=== PATIENT | female | born 1980 | race Two or more races ===

== ENCOUNTER 2017-03-03 05:22 | Day surgery (SDC) | payer OTHER ==
[2017-03-02 10:56] VITALS: BMI 26.6
--- NOTE | 2017-03-03 09:32 | HP ---
Satellite [facility] - Chief Complaint Chief Complaint: right middle finger pain/locking - Past Medical History Allergies/Adverse Reactions: Allergies Allergy/AdvReac Type Severity Reaction Status Date / Time No Known Drug Allergies Allergy Verified 03/02/17 10:46 ...LMP: 02/25/17 - Current Medications Current Medications: Home Medications Medication Instructions Recorded Bupropion HCl [Wellbutrin -] 200 mg PO DAILY 03/02/17 Citalopram Hydrobromide [Celexa -] 20 mg PO HS 03/02/17 Desogestrel-Ethinyl Estradiol 1 each PO DAILY 03/02/17 [Apri 28 Day Tablet] Dexlansoprazole [Dexilant] 60 mg PO DAILY 03/02/17 Hydrocodone/Acetaminophen [[place] 1 - 2 each PO Q6H #30 tablet MDD 8 03/03/17 5-325 Tablet] Satellite Physical Exam - Physical Examination Vital Signs: Vital Signs Period Temp Pulse Resp BP Sys/Saha Pulse Ox Last 24 Hr 98.0 F 72 18 129/90 100 General Appearance: Well Nourished, Well Developed, Alert & Oriented x3 ENT: Clear Lung: Normal air movement Heart: Regular rate & rhythm Extremities: Other (right middle finger- + ttp a1 last, + locking, nvi) Neurological: Intact, Alert, Oriented Satellite Impression/Plan - Impression/Plan Impression: right middle trigger finger Operative Procedure: right middle trigger release Date to be Performed: 03/03/17
[2017-03-03] MEDS ORDERED: BUPIVACAINE HCL/PF 0.5% (5MG/ML) 10 ML VIAL ONE (10:05)
[2017-03-03] MEDS ORDERED: LIDOCAINE HCL 1%, 10 MG/ML (20ML VIAL) ONE (10:05)
[2017-03-03] MEDS ORDERED: MIDAZOLAM HCL 2 MG/2 ML SINGLE DOSE VIAL ONE (10:20)
[2017-03-03] MEDS ORDERED: PROPOFOL 20 ML ONE ×2 (10:20)
[2017-03-03] MEDS ORDERED: ceFAZolin SODIUM 1 GM VIAL ONE (10:20)
[2017-03-03] MEDS ORDERED: ceFAZolin SODIUM 1 GM VIAL IVPB ONE (10:33)
[2017-03-03] MEDS ORDERED: LIDOCAINE HCL 1%, 10 MG/ML (20ML VIAL) IJ ONE (10:42)
[2017-03-03] MEDS ORDERED: BUPIVACAINE HCL/PF 0.5% (5MG/ML) 10 ML VIAL IJ ONE (10:42)
--- NOTE | 2017-03-03 10:58 | OP ---
Operative Note - Note: Operative Date: 03/03/17 Pre-Operative Diagnosis: right middle finger trigger finger Operation: right middle finger trigger release, tendon sheath excision Post-Operative Diagnosis: Same as Pre-op Surgeon: Jose Elias Pineda Anesthesiologist/ASSOCIATE DIRECTOR DATA & ANALYTICS: Violeta Miller Anesthesia: General, Local Specimens Removed: tendon sheath Estimated Blood Loss (mls): 0 Drains, Volume Out (mls): 0 Blood Volume Replaced (mls): 0 Fluid Volume Replaced (mls): 500 Operative Report Dictated: Yes
[2017-03-03] MEDS ORDERED: ONDANSETRON 4 MG/2 ML VIAL IVPUSH PRN (11:04)
[2017-03-03] MEDS ORDERED: oxyCODONE HCL 5 MG TABLET PO PRN (11:04)
[2017-03-03] MEDS ORDERED: ACETAMINOPHEN 325 MG TABLET (FP) PO PRN (11:04)
--- NOTE | 2017-03-03 11:28 | SPEC ---
DATE OF OPERATION: 03/03/2017 PREOPERATIVE DIAGNOSIS: Right middle finger trigger finger. POSTOPERATIVE DIAGNOSIS: Right middle finger trigger finger. PROCEDURE: Right middle finger trigger finger release and tendon sheath excision. SURGEON: Dhiraj Nunes MD CASTING TRUCKER: None. ANESTHESIA: MAC anesthesia with local injection 10 mL of 0.5% Marcaine and 1% Lidocaine mix. DRAINS: None. COMPLICATIONS: None. SPECIMENS: Right middle finger tendon sheath. BLOOD LOSS: None. BLOOD GIVEN: None. FLUID REPLACEMENT: 500 mL. INDICATIONS: This patient is a 36-year-old female with preoperative diagnosis of recurrent severe right middle finger trigger finger. After understanding the potential risks, complications, alternatives, and benefits of surgical versus nonsurgical treatment, the patient elected to undergo the procedure. PROCEDURE: The patient was brought to the operating room, IV was placed, and intravenous sedation was given. One gram of intravenous Ancef was given. A tourniquet was applied to the right upper arm and the right upper extremity was prepped and draped in sterile fashion. The entire case was done under 3.8 loupe magnification. A marking pen was utilized to netta out a longitudinal incision in an already existing skin crease at the base of the right middle finger. Then 10 mL of 0.5% Marcaine mixed with 1% Lidocaine was injected in and around the incision. The right upper extremity was elevated, exsanguinated with an Esmarch bandage and the tourniquet inflated to 250 mmHg. A No. 15 scalpel blade was utilized to cut down through the skin. Subcutaneous hemostasis was achieved with the bipolar cautery. Additional dissection was done with Littler scissors until I was able to directly visualize the A1 last sheath in its entirety. Self-retaining retractors were placed into the wound. A free air elevator was used to free up the tissue on the radial side, the ulnar side distally and proximally under better visualization of A1 last sheath. Next, using a fresh No. 15 scalpel blade, I excised the central one-third of the A1 last sheath and passed it off the field as specimen, tendon sheath, and right middle finger. I then completed the release, both distally and proximally, and brought the FDS and FDP tendons out through the wound with a Ragnell retractor. There were no abnormal points of compression. I was able to move the right middle finger without the tendons bunching up at all. The area was then copiously irrigated and washed out. I then checked one more time to make sure there were no abnormal points of compression. None were seen and therefore closure was begun. One stitch using 4-0 Vicryl was used in the deep dermal layer. Skin was reapproximated with 4-0 Nylon sutures in a horizontal mattress fashion. The area was then washed and dried, covered with Xeroform gauze, sterile 4 x 4s, fluffs between the fingers, Webril and Coban. The tourniquet was taken down after a total tourniquet time of 10 minutes. There were no complications during the case. The patient tolerated the procedure well and was brought to the Ambulatory recovery Room in stable condition. DHIRAJ NUNES M.D. [id number]
[2017-03-03 12:38] VITALS: TEMP 97.2
[2017-03-03 13:52] VITALS: BP 111/72; PULSE 66
--- NOTE | 2017-03-04 13:43 | PATH ---
Surgical Pathology Report Patient Name: TRACIE NGUYEN Med. Rec. #: [id number] /Age/Gender: 1980 (Age: 36) / F Account: [id number] Location: [facility] SURGICAL Taken: 03/03/2017 Received: 03/03/2017 Reported: 03/04/2017 Physicians: Jose Elias Pineda M.D. Specimen(s) Received TENDON SHEATH Clinical History Right middle finger trigger finger Final Diagnosis SOFT TISSUE, TENDON SHEATH, RIGHT TRIGGER FINGER RELEASE: BENIGN TENOSYNOVIAL FIBROFATTY TISSUE WITH FOCAL MYXOID DEGENERATION. Electronically Signed Eduardo Castro M.D. Gross Description Received in formalin labeled "tendon sheath" is a 0.5 x 0.4 x 0.1 cm aggregate of edouard soft tissue fragments. The specimen is entirely submitted in one cassette. /03/03/2017 saudi03/03/2017
== END 2017-03-03 13:15 | disposition home or self-care (01) ==
LOC: JASU-SURG 05:22
PROVIDERS: ATTEND Orthopaedic Surgery
PROC: 0LN70ZZ Release Right Hand Tendon, Open Approach (ICD-10-PCS; principal; 2017-03-03 10:00)
DX: M65.331 Trigger finger, right middle finger (principal)
CPT/HCPCS: 88304-TC; 94760

== ENCOUNTER 2018-10-26 05:17 | Day surgery (SDC) | payer OTHER ==
[2018-10-24 16:23] VITALS: BMI 27.6
[2018-10-26] MEDS ORDERED: LIDOCAINE HCL/PF 2% SDV 5ML VIAL ONE (07:56)
[2018-10-26] MEDS ORDERED: ceFAZolin SODIUM 1 GM VIAL ONE (07:56)
[2018-10-26] MEDS ORDERED: PROPOFOL 20 ML ONE (07:56)
[2018-10-26] MEDS ORDERED: MIDAZOLAM HCL 2 MG/2 ML SINGLE DOSE VIAL ONE (07:57)
--- NOTE | 2018-10-26 08:17 | HP ---
Satellite [facility] - Chief Complaint Chief Complaint: right hand pain, numbness, tingling, weakness History of Present Illness: right CTS, ring trigger finger History Source: Patient Limitations to Obtaining History: No Limitations - Past Medical History Allergies/Adverse Reactions: Allergies Allergy/AdvReac Type Severity Reaction Status Date / Time No Known Drug Allergies Allergy Verified 10/26/18 06:25 ...LMP: 09/30/18 - Current Medications Current Medications: Home Medications Medication Instructions Recorded Bupropion HCl [Wellbutrin -] 200 mg PO DAILY 03/02/17 Citalopram Hydrobromide [Celexa -] 20 mg PO HS 03/02/17 Dexlansoprazole [Dexilant] 60 mg PO DAILY 03/02/17 Acetaminophen [Tylenol -] 500 mg PO PRN 10/24/18 Montelukast Sodium [Singulair] 10 mg PO DAILY 10/24/18 Satellite Physical Exam - Physical Examination Vital Signs: Vital Signs Period Temp Pulse Resp BP Sys/Saha Pulse Ox Last 24 Hr 98.4 F 63 16 118/73 100 General Appearance: Well Nourished ENT: Clear Lung: Clear to auscultation Heart: Regular rate & rhythm Breasts: Soft Abdomen: Soft Extremities: No edema Satellite Impression/Plan - Impression/Plan Impression: right CTS, ring trigger finger Operative Procedure: right CTR, ring trigger finger release Date to be Performed: 10/26/18
[2018-10-26] MEDS ORDERED: ceFAZolin SODIUM 1 GM VIAL IVPB ONE (08:21)
[2018-10-26] MEDS ORDERED: LIDOCAINE HCL 1%, 10 MG/ML (20ML VIAL) NR ONE (08:35)
[2018-10-26] MEDS ORDERED: BUPIVACAINE HCL/PF 0.5% (5MG/ML) 10 ML VIAL IJ ONE (08:35)
[2018-10-26] MEDS ORDERED: KETOROLAC TROMETHAMINE 30 MG/1 ML VIAL ONE (08:36)
--- NOTE | 2018-10-26 09:10 | OP ---
Operative Note - Note: Operative Date: 10/26/18 Pre-Operative Diagnosis: right CTS, ring trigger finger Operation: right CTR, ring trigger release, tenosynovectomy Post-Operative Diagnosis: Same as Pre-op Surgeon: Jose Elias Pineda Anesthesiologist/VISUAL COMMUNICATIONS INSTRUCTOR: Violeta Miller Anesthesia: Local, MAC Specimens Removed: tenosynovium Estimated Blood Loss (mls): 0 Drains, Volume Out (mls): 0 Blood Volume Replaced (mls): 0 Fluid Volume Replaced (mls): 500 Operative Report Dictated: Yes
[2018-10-26] MEDS ORDERED: ONDANSETRON 4 MG/2 ML VIAL IVPUSH PRN (09:16)
[2018-10-26] MEDS ORDERED: ACETAMINOPHEN 1000 MG/100 ML VIAL (NON FORMULARY) IVPB ONE (09:16)
[2018-10-26] MEDS ORDERED: oxyCODONE HCL 5 MG TABLET PO PRN (09:16)
[2018-10-26] MEDS ORDERED: LACTATED RINGERS SOLUTION 1,000 ML IV SCH (09:30)
[2018-10-26] MEDS ORDERED: ACETAMINOPHEN INJECTION 100 ML IVPB ONE (09:38)
[2018-10-26 10:41] VITALS: TEMP 97.5
--- NOTE | 2018-10-26 10:44 | SPEC ---
DATE OF OPERATION: 10/26/2018 PREOPERATIVE DIAGNOSIS: Right carpal tunnel syndrome and ring finger trigger-finger. POSTOPERATIVE DIAGNOSIS: Right carpal tunnel syndrome and ring finger trigger-finger. PROCEDURE: Right carpal tunnel release, right ring finger trigger-finger release, tendon sheath excision, and tenosynovectomy. SURGEON: Jose Eilas Pineda M.D. ASSISTANTS: None. ANESTHESIOLOGIST: Violeta Miller MD ANESTHESIA: MAC, local injection with 15 mL of 0.5% Marcaine and 1% Lidocaine mix. DRAINS: None. COMPLICATIONS: None. BLOOD LOSS: None. BLOOD GIVEN: None. SPECIMENS: Tenosynovium, right wrist, and tendon sheath, right ring finger. FLUID REPLACEMENT: PlasmaLyte, 500 mL. INDICATIONS: After understanding the potential risks, complications, alternatives and benefits of surgery versus nonsurgical treatment, the patient elected to undergo this procedure. DESCRIPTION OF PROCEDURES: CARPAL TUNNEL RELEASE: The patient was brought to the operating room, peripheral IV placed and intravenous sedation was given. One gram of intravenous Ancef was given. MAC anesthesia was induced. A tourniquet was applied to the right upper arm and the right upper extremity was prepped and draped in sterile fashion. The entire case was done under 3.8 loupe magnification. A marking pen was utilized to netta out a longitudinal incision in an already existing skin crease. Twenty mL of 0.5% Marcaine mixed with 1% Lidocaine was injected in and around the surgical incision. The right upper extremity was elevated, exsanguinated with an Esmarch bandage and the tourniquet inflated to 250 mmHg. A No. 15 scalpel blade was utilized to cut down through the skin. Subcutaneous hemostasis was achieved with the bipolar cautery. Dissection was done through the superficial palmar fascia. Self-retaining retractors were placed into the wound. Under direct visualization, the transverse carpal ligament was transected with a No. 15 scalpel blade, exposing the median nerve and the contents of the carpal tunnel. The distal and proximal extents of the release were completed with a Littler scissor and checked with irrigation and my small finger. They were seen to be complete. Limited dissection was done on the radial side of the median nerve and more extensive dissection was done on the ulnar side of the median nerve. The patients nerve was seen to be quite compressed by epineurium and therefore a limited epineurotomy was performed. A Ragnell retractor was used to gently retract the median nerve in a radial direction. The patient had a lot of tenosynovitis and therefore a tenosynovectomy was performed off all 9 flexor tendons. This was passed off the field as tenosynovium right wrist. The floor of the carpal tunnel was checked. There were no abnormal masses or ganglion cysts. The area was copiously irrigated and washed out and closure begun. Undyed 4-0 Vicryl was used to close the deep dermal layer. Final skin reapproximation was done with horizontal mattress 4-0 nylon sutures. The area was then washed and dried, covered with Xeroform, 4x4s, fluffs between the fingers, Webril and a 4-inch plaster roll was utilized to make a volar splint, which was then wrapped with Aida and Coban. TRIGGER FINGER RELEASE: The entire case was done under 3.8 loupe magnification. A marking pen was utilized to netta out a longitudinal incision in an already existing skin crease at the base of the right ring finger. Then 10 mL of 0.5% Marcaine mixed with 1% Lidocaine was injected in and around the incision. The right upper extremity was elevated, exsanguinated with an Esmarch bandage and the tourniquet inflated to 250 mmHg. A No. 15 scalpel blade was utilized to cut down through the skin. Subcutaneous hemostasis was achieved with the bipolar cautery. Additional dissection was done with Littler scissors until I was able to directly visualize the A1 last sheath in its entirety. Self-retaining retractors were placed into the wound. A free air elevator was used to free up the tissue on the radial side, the ulnar side distally and proximally under better visualization of A1 last sheath. Next, using a fresh No. 15 scalpel blade, I excised the central one-third of the A1 last sheath and passed it off the field as specimen, tendon sheath, right ring finger. I then completed the release, both distally and proximally, and brought the FDS and FDP tendons out through the wound with a Ragnell retractor. There were no abnormal points of compression. I was able to move the right ring finger without the tendons bunching up at all. The area was then copiously irrigated and washed out. I then checked one more time to make sure there were no abnormal points of compression. None were seen and therefore closure was begun. One stitch using 4-0 Vicryl was used in the deep dermal layer. Skin was reapproximated with 4-0 Nylon sutures in a horizontal mattress fashion. The area was then washed and dried, covered with Xeroform gauze, sterile 4x4s, fluffs between the fingers, Webril and Coban. The tourniquet was taken down after a total tourniquet time of 29 minutes. There were no complications during the case. The patient tolerated the procedure well and was brought to the ambulatory recovery room in stable condition. Tana [id number]
[2018-10-26 12:16] VITALS: BP 123/72; PULSE 59
--- NOTE | 2018-10-27 17:34 | PATH ---
Surgical Pathology Report Patient Name: TRACIE NGUYEN Med. Rec. #: [id number] /Age/Gender: 1980 (Age: 38) / F Account: [id number] Location: [facility] SURGICAL Taken: 10/26/2018 Received: 10/26/2018 Reported: 10/27/2018 Physicians: Jose Elias Pineda M.D. Specimen(s) Received RIGHT HAND TENOSYNOVIUM Clinical History Right carpal tunnel syndrome and right trigger finger Final Diagnosis HAND, RIGHT, TENOSYNOVIUM, CARPAL TUNNEL RELEASE: BENIGN FIBROCONNECTIVE TISSUE. Electronically Signed Oly Lackey M.D. Gross Description Received in formalin labeled "right hand tenosynovium," is a 2.2 x 1.8 x 0.3 cm aggregate of edouard-yellow portions of soft tissue, consistent with tenosynovium. The specimen is submitted in toto in one cassette. /10/26/201810/26/2018
== END 2018-10-26 12:19 | disposition home or self-care (01) ==
LOC: JASU-SURG 05:17
PROVIDERS: ATTEND Orthopaedic Surgery
PROC: 0LN70ZZ Release Right Hand Tendon, Open Approach (ICD-10-PCS; principal; 2018-10-26 08:00)
PROC: 01N50ZZ Release Median Nerve, Open Approach (ICD-10-PCS; 2018-10-26 08:00)
DX: G56.01 Carpal tunnel syndrome, right upper limb (principal); M65.341 Trigger finger, right ring finger
CPT/HCPCS: 36415; 84703; 88304-TC; 94760; J0131